=== PATIENT | female | born 1975 | race Caucasian/White ===

== ENCOUNTER 2016-12-01 16:53 | Emergency (ER) | payer OTHER | END 2016-12-01 20:35 | disposition left against medical advice (07) | LOC: ER1 16:53 | DX: Z53.21 Procedure and treatment not carried out due to patient leaving prior to being seen by health care provider (principal) | CPT/HCPCS: 93005 ==

== ENCOUNTER 2016-12-04 10:40 | Emergency (ER) | payer OTHER ==
[2016-12-04 11:44] LABS: HEMOGLOBIN 13.1 gm/dl (12.3-15.3); RED BLOOD COUNT 4.21 M/UL (4.00-5.10); WHITE BLOOD COUNT 7.9 K/UL (4.5-11.0)
[2016-12-04 12:14] LABS: BUN/CREATININE RATIO 10 (0-10)
== END 2016-12-04 16:06 | disposition home or self-care (01) ==
LOC: ER1 10:40
PROVIDERS: Emergency Medicine
DX: J40 Bronchitis, not specified as acute or chronic (principal); Z88.2 Allergy status to sulfonamides
CPT/HCPCS: 36415; 71020; 80053; 82550; 82553; 83690; 83874; 84484; 85025; 93005; 94640; 94664; 99285